=== PATIENT | male | born 1960 | race Caucasian/White ===

== ENCOUNTER → 2018-01-19 12:51 | Outpatient (CLI) | payer BC, SELFPAY ==
[2018-01-19 16:30] LABS: Alanine Aminotransferase 26 U/L (12-78); Albumin Level 3.8 gm/dL (3.4-5.0); Alkaline Phosphatase 78 U/L (46-116); Aspartate Amino Transferase 17 U/L (15-37); Bilirubin,Direct 0.1 mg/dL (0.0-0.2); Bilirubin,Indirect 0.3 mg/dL (0.0-0.9); Bilirubin,Total 0.4 mg/dL (0.2-1.0); Chol/HDL Ratio 5.5 (1-3.5); Cholesterol 143 mg/dL (140-200); HDL Cholesterol 26 mg/dL (27-67); LDL Cholesterol 71 mg/dL (0-130); Total Protein,Serum 7.3 gm/dL (6.4-8.2); Triglycerides 228 mg/dL (30-200); VLDL Cholesterol 46 mg/dL (0-40)
== END ==
PROVIDERS: Visit Provider Internal Medicine
DX: E78.5 Hyperlipidemia, unspecified (principal)
CPT/HCPCS: 36415; 80061; 80076

== ENCOUNTER → 2018-12-12 18:20 | Outpatient (CLI) | payer BC, SELFPAY ==
[2018-12-12 20:23] LABS: Amphetamine/Metha Screen,Urine Negative ng/mL (<1000); Barbiturates Screen,Urine Negative ng/mL (<200); Benzodiazepines Screen,Urine Negative ng/mL (<200); Cannabinoid Screen,Urine Negative ng/mL (<50); Cocaine Screen,Urine Negative ng/mL (<300); Methadone Screen,Urine Negative ng/mL (<300); Opiate Screen,Urine Positive ng/mL (<300); Phencyclidine Screen,Urine Negative ng/mL (<25)
== END ==
PROVIDERS: Visit Provider Emergency Medicine
DX: Z79.891 Long term (current) use of opiate analgesic (principal)
CPT/HCPCS: 80305

== ENCOUNTER → 2018-12-31 13:59 | Outpatient (CLI) | payer BC, SELFPAY ==
[2018-12-31 16:58] LABS: Amphetamine/Metha Screen,Urine Negative ng/mL (<1000); Barbiturates Screen,Urine Negative ng/mL (<200); Benzodiazepines Screen,Urine Negative ng/mL (<200); Cannabinoid Screen,Urine Negative ng/mL (<50); Cocaine Screen,Urine Negative ng/mL (<300); Methadone Screen,Urine Negative ng/mL (<300); Opiate Screen,Urine Positive ng/mL (<300); Phencyclidine Screen,Urine Negative ng/mL (<25)
== END ==
PROVIDERS: Visit Provider Emergency Medicine
DX: Z79.899 Other long term (current) drug therapy (principal)
CPT/HCPCS: 80305

== ENCOUNTER → 2020-02-27 10:40 | Outpatient (CLI) | payer BC, SELFPAY ==
--- NOTE | 2020-02-27 10:41 | CA_ITS ---
APPROVED REPORT EXAM: Comprehensive 2D, Doppler, and color-flow Echocardiogram Mattress Renovator: Ryann Boss RVT Ht: 5 ft 11 in Wt: 231lbs BSA: 2.24 BP: 154/95 mmHg Indications: cad,htn,hld,smoker,dot clearance,stent 2D Dimensions LVOT 1.75 cm (M/F) 1.5-2.5 M-Mode Dimensions RVDd 3.60 cm (0.9-2.6) LA Diam 4.27 cm (1.9-4.0) LVDd 5.46 cm (3.5-5.7) Ao Diam 2.93 cm (2.0-3.7) LVDs 3.98 cm (3.5-5.7) IVSd 0.68 cm (0.6-1.1) PWd 1.14 cm (0.6-1.1) EF (Teich) 52.30% FS 27.10% EDV (Teich) 145.00 mL ESV (Teich) 69.20 mL LV Diastology E Decel Time 197.00 (160-240 msec) E/A Ratio 0.7 MED E' 5.70 (< 7 cm/sec) E'/MED E' Ratio 11.12 (>14) LAT E' 8.90 (<10 cm/sec) E/LAT E' Ratio 7.12 (>14) Mitral Valve MV E Max Ricky. 63.00 (40-130 cm/s) MV A Velocity 89.00 (40-130 cm/s) E/A Ratio 0.71 MV Decel. Time 197.00 (160-240 ms) MV PHT 58.00 ms Pulmonary Valve PV Peak Velocity 85.00 (50-150 cm/s) Left Ventricle Left atrium is mildly enlarged, left ventricle is normal size, mild concentric left ventricular hypertrophy, visually estimated ejection fraction 55% with no regional wall motion abnormality, grade 1 diastolic dysfunction seen without tissue Doppler evidence of raise left atrial pressure. Right Ventricle Right atrium and right ventricle are mildly enlarged with normal contractility. Aortic Valve Aortic valve is minimally thickened and fibrosed, leaflet continue to display good mobility, there is no aortic stenosis or aortic insufficiency. Mitral Valve Mitral valve is grossly normal, there is mild mitral regurgitation. Tricuspid Valve Tricuspid valve is grossly normal, there is mild tricuspid regurgitation, tricuspid regurgitation jet velocity is inadequate for calculation of the right ventricular systolic pressure. Pulmonic Valve Pulmonic valve is poorly visualized. Great Vessels Aortic root is normal size. Pericardium No significant pericardial effusion noted. Conclusion 1. Mild biatrial enlargement, normal left ventricular size, mild concentric left ventricular hypertrophy, visually estimated ejection fraction 55% with no regional wall motion abnormality, grade 1 diastolic dysfunction seen without tissue Doppler evidence of raise left atrial pressure. 2. Mildly enlarged right ventricle with normal contractility. 3. Thickened and calcified aortic valve without aortic stenosis or aortic insufficiency. 4. Mild mitral and tricuspid regurgitation. 5. No significant pericardial effusion noted. Electronically signed by : Jona Uribe, 02/27/2020 14:44:25
--- NOTE | 2020-02-27 10:41 | NM_ITS ---
APPROVED REPORT Exam: Nuclear Stress Test Indication: CAD,,Hypertensive..hyperlipidemia Patient Location: Outpatient Stress Tech: Mraitza Thomasnkson NC Tech:ELIZABETH Arguello RT(R)(N) Ht: 5 ft 11 in Wt: 228 lbs HR: 73 bpm BP: 135/75 mmHg BSA: 2.23 m2 BMI: 31.7 History: CAD,,Hypertensive..hyperlipidemia Procedure: Patient received a 0.4 mg of intravenous Lexiscan, resting heart rate 73 bpm, resting blood pressure 135/75 mmHg, with Lexiscan maximum heart rate achived was 98 bpm which is Less than 85 % of the maximum predicted heart rate and blood pressure was 151/75 mmHg. With Lexiscan, patient denied any complaint of chest pain. Electrocardiogram Resting electrocardiogram showed sinus rhythm right bundle branch block, with Lexiscan there is less than 1.[address] segment depression noted from the baseline EKG. The EKG portion of the Lexiscan is nondiagnostic. Cardiac Stress and Resting SPECT Images: Cardiac Stress and Resting SPECT images were obtained using technetium 99m Myoview 32.0 mCi stress and 10.74 mCi at rest. Gated SPECT for analysis of segmental wall motion and calculation of the ejection fraction also done. Cardiac stress and resting SPECT images show a mild fixed defect in the inferior wall with mild reduced contractility is likely secondary to nontransmural myocardial scarring without any significant darlin-infarct ischemia, computer derived ejection fraction is 52% with no regional wall motion abnormality, right ventricle is normal size and contractility. Conclusion: 1. The EKG portion of the Lexiscan is nondiagnostic. 2. Scintigraphic evidence of nontransmural myocardial scarring involving the inferior wall without significant darlin-infarct ischemia, computer derived ejection fraction 52% with no regional wall motion abnormality, right ventricle is normal size and contractility. 3. Abnormal Lexiscan Myoview study. Electronically signed by : Jona Uribe, 02/27/2020 14:54:10
--- NOTE | 2020-02-27 10:41 | CA_ITS ---
APPROVED REPORT Exam: Pharmacologic Technologist: Lilly Mendez, Ht: 5 ft 11 in Wt: 231 lbs BSA: 2.24 m2 HR: 73 bpm BP: 135/75 mmHg Rhythm: NSR, RBB, CANNOT R/O OLD INFERO-LATERAL CA Medical History Medical History: Hyperlipidemia, Hyperlipidemia Medications: Hydrocodone,,,,, CloPIdogrel,,,,, Acetaminophen,,,,, Nitroglycerin,,,,, AtorvaASTATIN,,,,, PantoprazLE,,,,, Lisinopri/HCTZ,,,,, Allergies: No known drug allergies Cardiac Risk Factors: Hyperlipidemia Stress Test Details Test: LEXISCAN HR Resting HR: 75 bpm Max Heart Rate (APMHR): 159 bpm Max HR Achieved: 119 bpm Target HR (85% APMHR): 135 bpm % of APMHR: 74 Recovery HR: 91 bpm BP Resting BP: 135/75 mmHg Max BP: 155/75 mmHg Recovery BP: 126.0/80.0 mmHg ECG Clinical Exercise duration: 04:19 min Highest Stage Achieved: Exercise capacity: 1.0 METs Stress ECG Conclusion DURING STRESS PATIENT BECAME SOA, HAD MILD NAUSEA AND MALAISE. NO CP. NO ARRHYTHMIAS. NO SIGNIFICANT ST-T CHANGES. UNREMARKABLE LEXISCAN STRESS. MYOVIEW IMAGES REPORTED SEPERATELY. Electronically signed by : Jona Uribe, 02/27/2020 16:46:07
== END ==
LOC: RT 10:41
PROVIDERS: PCP Emergency Medicine; Visit Provider Nurse Practitioner Family
DX: Z02.4 Encounter for examination for driving license (principal); I25.10 Atherosclerotic heart disease of native coronary artery without angina pectoris; I11.9 Hypertensive heart disease without heart failure; E78.5 Hyperlipidemia, unspecified; F17.200 Nicotine dependence, unspecified, uncomplicated; Z95.5 Presence of coronary angioplasty implant and graft
CPT/HCPCS: 78452; 93017; 93306; A9502; J2785

== ENCOUNTER → 2021-12-30 16:03 | Outpatient (CLI) | payer BC, SELFPAY | PROVIDERS: PCP Emergency Medicine; Visit Provider Nurse Practitioner Family | DX: Z02.4 Encounter for examination for driving license (principal) ==

== ENCOUNTER 2024-07-30 07:54 | Outpatient (CLI) | payer BC, MEDICARE, SELFPAY ==
--- NOTE | 2024-07-30 | US_ITS ---
FINAL REPORT CLINICAL HISTORY: Claudication, cold feet, smoker, HTN, HLD, CAD, RI, Cardiac stents 5, Non-compliant with meds FINDINGS: Ankle-brachial indices was obtained. The right DIMITRI is 0.58. The left DIMITRI is 0.44. IMPRESSION: Moderate to advanced arterial occlusive disease. Consider catheter directed angiography. Reviewed, Interpreted and Dictated by Tr Lehman MD Transcribed by Suzanne Islas Authenticated and [facility]
== END 2024-07-30 23:59 | disposition home or self-care (01) ==
LOC: RT 07:55
PROVIDERS: PCP Family Medicine; Visit Provider Family Medicine
DX: I73.9 Peripheral vascular disease, unspecified (principal)
CPT/HCPCS: 93923

== ENCOUNTER 2024-11-21 08:07 | Outpatient (CLI) | payer BC, MEDICARE, SELFPAY ==
--- OUTSIDE RECORDS SUMMARY | 2024-07-25 06:00 | XMS_ITS ---
[facility] [address] [facility] [address] [phone] Care Team Providers Care Fire Watchman Name Role Phone Tex Hurt Primary Care Provider [phone] Allergies No Known Allergies Results Component Value Reference Range Notes CBC Venipuncture (in house) Reviewed date:07/26/2024 08:23:46 AM Interpretation:Normal Performing Lab: Notes/Report: Normal wbc 9.2 3.5 - 10 lymph 22.5% 15 - 50 mid 5.2% 2 - 15 gran 72.3% 35 - 80 rbc 5.51 3.5 - 5.5 hgb 15.4 11.5 - 16.5 hct 46.8 35 - 55 mcv 84.9 75 - 100 mch 28.1 25 - 35 mchc 33.0 31 - 38 platlet 287 100 - 400 P-Comprehensive Metabolic Pa heather (CMP) Reviewed date:07/26/2024 08:23:46 AM Interpretation:gluc 135 Performing Lab: Notes/Report: Test performed by [facility] , [address], [place] [address] Elliot De Santiago MD, Warehouse Puller CLIA: [id number] Sodium 135 135-145 mmol/L Potassium 5.3 3.5-5.3 mmol/L Chloride 98 97-108 mmol/L CO2 25 22-32 mmol/L Glucose 135 65-99 mg/dL BUN 11 8-23 mg/dL Creatinine 1.03 0.70-1.30 mg/dL Calcium 9.8 8.6-10.4 mg/dL eGFR by Creatinine 80 >59 mL/min/1.73m2 Protein 7.4 6.0-8.3 g/dL Albumin 4.5 3.5-5.3 g/dL Alkaline Phosphatase 99 40-129 IU/L ALT (SGPT) 35 <5-55 IU/L AST (SGOT) 29 <5-46 IU/L Bilirubin, Total 0.4 <0.2-1.2 mg/dL A/G Ratio 1.6 1.1-2.5 P-Lipid Panel Reviewed date:07/26/2024 08:23:46 AM Interpretation:hdl 35 Performing Lab: Notes/Report: Test performed by [facility] [address] , [address], [place] [address] Elliot De Santiago MD, Warehouse Puller CLIA: [id number] Cholesterol 160 <200 mg/dL Triglycerides 135 <150 mg/dL HDL Cholesterol 35 >39 mg/dL Cholesterol / HDL Ratio 4.57 0.00-4.99 Ratio Non-HDL Cholesterol 125 <130 mg/dL LDL Cholesterol (Calculation) 98 <130 mg/dL LDL Cholesterol Levels* Less than 100 mg/dL Optimal 100 to 129 mg/dL Near Optimal/ Above Optimal 130 to 159 mg/dL Borderline High 160 to 189 mg/dL High 190 mg/dL and above Very High * Categories as recommended by the 2004 ATPIII guidelines LDL/HDL Ratio 2.8 <3.3 Ratio LDL Cholesterol Patient History Test Date: 07/25/2024 LDL Results: 98 Units: mg/dL % Change: - P-PSA Reviewed date:07/26/2024 08:23:46 AM Interpretation:Normal Performing Lab: Notes/Report: Test performed by [facility] [address] , [facility], [place] [address] Elliot De Santiago MD, Warehouse Puller CLIA: [id number] PSA 0.52 <4.00 ng/mL Please note this is an ultrasensitive PSA assay with a lower limit of detection of 0.014 ng/mL. This test is performed by the Lesley ECLIA methodology. Values obtained with different assay methods or kits cannot be directly compared. P-TSH reflex to FT4 Reviewed date:07/26/2024 08:23:46 AM Interpretation:Normal Performing Lab: Notes/Report: Test performed by [facility] [address] , [facility] [place] [address] Elliot De Santiago MD, Warehouse Puller CLIA: [id number] TSH reflex to FT4 0.89 0.43-5.25 mU/L P-Microalbumin/Creatinine, R andom Urine Sample Reviewed date:07/26/2024 08:23:46 AM Interpretation:Normal Performing Lab: Notes/Report: Test performed by [facility] [address] , [facility], [place] [address] Elliot De Santiago MD, Warehouse Puller CLIA: [id number] Albumin/Creatinine Ratio, Urine <7.10 0-30 ug/mg Microalbumin, Urine, Random <0.3 Creatinine, Urine 42.2 Ankle-brachial index Reviewed date:08/01/2024 12:27:22 PM Interpretation:Abnormal Performing Lab: Notes/Report: Abnormal REASON FOR VISIT To get established-physical, leg pain Medications Medication SIG (Take, Route, Frequency, Duration) Notes Start Date End Date Status Terbinafine HCl 250 MG 1 tablet Orally O nce a day; Duration: 90 days 07/25/2024 Active Pantoprazole Sodium 40 MG 1 tablet 1/2 t o 1 hour before morning meal Orally Once a day Active Atorvastatin Calcium 80 MG 1 tablet Oral ly Once a day Active Lisinopril 20 MG 1 tablet Orally Once a day Active Clopidogrel Bisulfate 75 MG 1 tablet Ora lly Once a day Active Social History Tobacco Use: Social History Observation Description Date Details (start date - stop date) Current Smoker NA - NA CURRENT TOBACCO USE: Question Answer Notes Are you a: current every day smoker 1 1/2 P PD Problems Problem Type SNOMED Code ICD Code Onset Dates Problem Status W/U Status Risk Notes Problem Coronary arteriosclerosis (disorder) (07556827) CAD in elem artery (I25.10) Active confirmed Problem Essential hypertension (89935453) Essential hypertension (I10) Active confirmed Problem Hyperlipidaemia (76263705) Hyperlipidemia, unspecified hyperlipidemia type (E78.5) Active confirmed Problem Intermittent claudication (15219880) Intermittent claudication (I73.9) Active confirmed Problem Sciatica (93948033) Left sided sciatica (M54.32) Active confirmed Problem Cigarette smoker (96514874) Cigarette smoker (F17.210) Active confirmed Problem Obesity (769768112) Non morbid obesity (E66.9) Active confirmed Problem BMI 30+ - obesity (260739620) BMI 32.0-32.9,adult (Z68.32) Active confirmed Vital Signs Weight 230 lbs 07/25/2024 Blood pressure systolic 140 mm Hg 07/26/19 25 Blood pressure diastolic 78 mm Hg 025 Heart Rate 83 /min 07/25/2024 Height 71 in 07/25/2024 BMI 32.07 kg/m2 07/25/2024 Encounters Encounter Location Date [facility] [address] [phone] 07/25/2024 Tex Hurt CAD in elem artery I25.10 ; Essential hypertension I10 ; Hyperlipidemia, unspecified hyperlipidemia type E78.5 ; Intermittent claudication I73.9 ; Pain in right arm M79.601 ; Left sided sciatica M54.32 ; Cigarette smoker F17.210 ; Onychomycosis B35.1 ; Onycholysis L60.1 ; Non morbid obesity E66.9 ; Prostate cancer screening Z12.5 and BMI 32.0-32.9,adult Z68.32 Assessments Encounter Date Diagnosis (ICD Code) Assessment Notes Treatment Notes Treatment Clinical Notes Section Notes 07/25/2024 CAD in elem artery (ICD-10 - I25.10) 07/25/2024 Essential hypertension (ICD-10 - I10) 07/25/2024 Hyperlipidemia, unspecified hyperlipidemia type (ICD-10 - E78.5) 07/25/2024 Intermittent claudication (ICD-10 - I73.9) 07/25/2024 Pain in right arm (ICD-10 - M79.601) 07/25/2024 Left sided sciatica (ICD-10 - M54.32) 07/25/2024 Cigarette smoker (ICD-10 - F17.210) Smoking cessation and necessary changes of behavior discussed with patient 07/25/2024 Onychomycosis (ICD-10 - B35.1) 07/25/2024 Onycholysis (ICD-10 - L60.1) 07/25/2024 Non morbid obesity (ICD-10 - E66.9) 07/25/2024 Prostate cancer screening (ICD-10 - Z12.5) 07/25/2024 BMI 32.0-32.9,adult (ICD-10 - Z68.32) Plan Of Treatment Medication Medication Name Sig Start Date Stop Date Notes Terbinafine HCl 250 MG 1 tablet Orally O nce a day; Duration: 90 days 07/25/2024 Pantoprazole Sodium 40 MG 1 tablet 1/2 t o 1 hour before morning meal Orally Once a day Atorvastatin Calcium 80 MG 1 tablet Orally Once a day Lisinopril 20 MG 1 tablet Orally Once a day Clopidogrel Bisulfate 75 MG 1 tablet Orally Once a day Treatment Notes Assessment Notes Cigarette smoker Smoking cessation an d necessary changes of behavior discussed with patient Next Appt Details Follow Up: 3 Months, Reason: Progress Notes * Hector GARCIASDOB: (64 yo M)Acc No.[id number]:07/25/2024 Progress Notes Patient: Hector VEGA Wali Provider: Betty Hurt M.D. :1960 A ge:63 Y S ex:Male Date:07/25/2024 Address:[address] [place] [address], [facility] [id number] Subjective: * Chief Complaints: * 1 . To get established-physical, leg pain. * HPI: H PI: 63 year old male presents with c/o Patient is here today for?Pt here to establish care, pt was previously seen by Dr. Soto Sanchez. D ermatology: c/o toe nail fungus P t complains of toe nail fungus on both feet and hands. Pt states toes are starting to get numb at times and pt thinks it may be from the fungi. K nee/Cardoza: c/o calf pain P t complains of bilateral calf tightening . Pt states it feels like he has a fausto horse in both calves . L ower back: c/o radiation of pain P t complains of lt lower back pack pain that radiates down the back of his lt leg. Pt states pain is debiliating at times and makes it difficult to complete daily tasks. * ROS: D ERMATOLOGY: no R tomas. n o H jaun. G ASTROENTEROLOGY: no N ausea. n o V omiting. U ROLOGY: no D ifficulty urinating. n o B lood in urine. * Medical History: H ypertlipidemia, Esophageal reflux, Hypertension, Coronary Artery Disease, 50 pack year smoking history as of 2024. * Surgical History: P ercutaneous coronary intervention, 5 stents in total, at [facility] . * Hospitalization/Major Diagno stic Procedure: D enies Past Hospitalization. * Family History: F ather: diagnosed with Stroke. M other: diagnosed with Cancer, Heart Disease. M aternal Grand Mother: diagnosed with Diabetes. 1 sister(s) . 1 daughter(s) . . * Social History: C URRENT TOBACCO USE: Yes A re you a: c urrent every day smoker 1 1/2 PPD. C affeine: yes, frequency: 3 Times Daily. Alcohol: yes. * Medications: T aking Clopidogrel Bisulfate 75 MG Tablet 1 tablet Orally Once a day , Taking Pantoprazole Sodium 40 MG Tablet Delayed Release 1 tablet 1/2 to 1 hour before morning meal Orally Once a day , Taking Atorvastatin Calcium 80 MG Tablet 1 tablet Orally Once a day , Taking Lisinopril 20 MG Tablet 1 tablet Orally Once a day , Medication List reviewed and reconciled with the patient * Allergies: N .K.D.A. Objective: * Vitals: W t: 230, Temp: 97.9, BP: 140/78, HR: 83, Nurse: ceci, Ht: 71, BMI:32.07. * Examination: G eneral Examination: General Appearance: N AD. H EENT: u nremarkable.?Oral cavity: n o lesions, mucosa moist and WNL, no erythema. N calista: s upple, no lymphadenopathy. H eart: R SR. L ungs: c lear to auscultation. N eurologic Exam: Intact, gait normal. S kin: m ultiple toenails are thickened and discolored yellow. P eripheral pulses: d iminished bilaterally. E xtremities: n o leg edema. Assessment: * Assessment: 1. C AD in elem artery - I25.10 (Primary) 2 . E ssential hypertension - I10 3 . H yperlipidemia, unspecified hyperlipidemia type - E78.5 4 . I ntermittent claudication - I73.9 5 . P ain in right arm - M79.601 6 . L eft sided sciatica - M54.32 7 . C igarette smoker - F17.210 8 . O nychomycosis - B35.1 9 . O nycholysis - L60.1 ? 1 0. N on morbid obesity - E66.9 1 1. P rostate cancer screening - Z12.5 1 2. B OK 32.0-32.9,adult - Z68.32 Plan: * Treatment: 2. E ssential hypertension Continue Lisinopril Tablet, 20 MG, 1 tablet, Orally, Once a day. L AB: P-Comprehensive Metabolic Panel (CMP) (Collection Date & Time - 07/25/2024 09:51 AM) g hananh 135 Value Reference Range A /G Ratio 1.6 1.1-2.5 - * A lbumin 4.5 3.5-5.3 - g/dL * A lkaline Phosphatase 99 40-129 - IU/L * A LT (SGPT) 35 <5-55 - IU/L * A ST (SGOT) 29 <5-46 - IU/L * B ilirubin, Total 0.4 <0.2-1.2 - mg/dL * B UN 11 8-23 - mg/dL * C alcium 9.8 8.6-10.4 - mg/dL * C hloride 98 97-108 - mmol/L * C O2 25 22-32 - mmol/L * C reatinine 1.03 0.70-1.30 - mg/dL * G lucose 135 H 65-99 - mg/dL * P otassium 5.3 3.5-5.3 - mmol/L * S odium 135 135-145 - mmol/L * P rotein 7.4 6.0-8.3 - g/dL * e GFR by Creatinine 80 >59 - mL/min/1.73m2 * Zhanna Solorio 07/26/2024 08:23 :33 AM > See phone encounter ?LAB: P-Microalbumin/Creatinine, Random Urine Sample (Collection Date & Time - 07/25/2024 09:51 AM)?Normal* Value Reference Range A lbumin/Creatinine Ratio, Urine <7.10 0-30 - ug /mg * C reatinine, Urine 42.2 - mg/dL * M icroalbumin, Urine, Random <0.3 - mg/dL * Zhanna Solorio 07/26/2024 08:23 :33 AM > See phone encounter 3.?Hyperlipidemia, unspecified hyperlipidemia type? Continue Atorvastatin Calcium Tablet, 80 MG, 1 tablet, Orally, Once a day.?LAB: P-Comprehensive Metabolic Panel (CMP) (Collection Date & Time - 07/25/2024 09:51 AM)?gluc 135* Value Reference Range A /G Ratio 1.6 1.1-2.5 - * A lbumin 4.5 3.5-5.3 - g/dL * A lkaline Phosphatase 99 40-129 - IU/L * A LT (SGPT) 35 <5-55 - IU/L * A ST (SGOT) 29 <5-46 - IU/L * B ilirubin, Total 0.4 <0.2-1.2 - mg/dL * B UN 11 8-23 - mg/dL * C alcium 9.8 8.6-10.4 - mg/dL * C hloride 98 97-108 - mmol/L * C O2 25 22-32 - mmol/L * C reatinine 1.03 0.70-1.30 - mg/dL * G lucose 135 H 65-99 - mg/dL * P otassium 5.3 3.5-5.3 - mmol/L * S odium 135 135-145 - mmol/L * P rotein 7.4 6.0-8.3 - g/dL * e GFR by Creatinine 80 >59 - mL/min/1.73m2 * Zhanna Solorio 07/26/2024 08:23 :33 AM > See phone encounter ?LAB: P-Lipid Panel (Collection Date & Time - 07/25/2024 09:51 AM)?hdl 35* Value Reference Range C holesterol / HDL Ratio 4.57 0.00-4.99 - Ratio * C holesterol 160 <200 - mg/dL * H DL Cholesterol 35 L >39 - mg/dL * L DL Cholesterol (Calculation) 98 <130 - mg/d L * L DL/HDL Ratio 2.8 <3.3 - Ratio * N on-HDL Cholesterol 125 <130 - mg/dL * T riglycerides 135 <150 - mg/dL * Zhanna Solorio 07/26/2024 08:23 :33 AM > See phone encounter ?LAB: P-TSH reflex to FT4 (Collection Date & Time - 07/25/2024 09:51 AM)? Normal* Value Reference Range T SH reflex to FT4 0.89 0.43-5.25 - mU/L * Zhanna Solorio 07/26/2024 08:23 :33 AM > See phone encounter 4.?Intermittent claudication?LAB: CBC Venipuncture (in house) (Collection Date & Time - 07/25/2024)? Normal* Value Reference Range w bc 9.2 3.5 - 10 * l ymph 22.5% 15 - 50 * m id 5.2% 2 - 15 * g ran 72.3% 35 - 80 * r bc 5.51 3.5 - 5.5 * h gb 15.4 11.5 - 16.5 * h ct 46.8 35 - 55 * m cv 84.9 75 - 100 * m ch 28.1 25 - 35 * m chc 33.0 31 - 38 * p latlet 287 100 - 400 * Deepika Dailey 07/25/2024 11:32:3 6 AM > Zhanna Solorio 07/26/2024 08:23:33 AM > See phone encounter ?Imaging: Ankle-brachial index (Performed Date - 07/30/2024)?Abnormal* Prefers AM appt.Rob Moody 07/25/2024 02:05:20 PM > no auth required as MCR is primary; CPT code 71617; faxed to [facility] Scheduling; 07/30/2024 at 08:00amGoortiz Sultana 07/30/2024 08:27:38 AM > Annette has called from [facility] lab. Pts readings are 0.44 on left leg, 0.58 on right leg, it should be 1.0. They are holding the pt as these are critical readings and need direction from Dr. Hurt. She sts that she is having a hard time finding a pulse in the left leg.Zhanna Solorio 07/31/2024 05:32:33 PM >see 07/30/2024 TE 5.?Cigarette smoker? Notes: Smoking cessation and necessary changes of behavior discussed with patient??6.?Onychomycosis? Start Terbinafine HCl Tablet, 250 MG, 1 tablet, Orally, Once a day, 90 days, 90 Tablet, Refills 0. ?7.?Prostate cancer screening?LAB: P-PSA (Collection Date & Time - 07/25/2024 09:51 AM)?Normal* Value Reference Range P SA 0.52 <4.00 - ng/mL * Zhanna Solorio 07/26/2024 08:23 :33 AM > See phone encounter 8.?Others? Continue Pantoprazole Sodium Tablet Delayed Release, 40 MG, 1 tablet 1/2 to 1 hour before morning meal, Orally, Once a day.?? * Procedure Codes: G 2211 Complex e/[place], [address] CBC WITH AUTO DIFF, 3077F SYST BP = 140 MM HG6 IT, 3078F DIAST BP < 80 MM HG * Follow Up: 3 Months * Images: Billing Information: * Visit Code: 58835 Office Visit, New Pt., Level 4. * Procedure Codes: G2211 Complex e/[place] [address] CBC WITH AUTO DIFF. 3077F SYST BP = 140 MM HG6 IT. 3078F DIAST BP < 80 MM HG. * Electronic signature of Yadira Hurt MD on 11/21/2024 at 08:13 AM EDT Sign off status: Pending * Provider: Betty Hurt M.D. Date: 0 07/25/2024 Generated for Ad de la garza/Omar/Lalo on: 0 11/21/2024 08:13 AM EDT History and Physical Notes * HPI (History of Present Illness) Category Sub-Category Detail Notes Category Not es Dermatology toe nail fungus Pt complains of toe nail fungus on both feet and hands. Pt states toes are starting to get numb at times and pt thinks it may be from the fungi Lower back radiation of pain Pt complains o f lt lower back pack pain that radiates down the back of his lt leg. Pt states pain is debiliating at times and makes it difficult to complete daily tasks Knee/Cardoza calf pain Pt complains of bilateral calf tightening . Pt states it feels like he has a fausto horse in both calves HPI Patient is here today for Pt her e to establish care, pt was previously seen by Dr. Soto Sanchez Examination Category Sub-Category Detail Notes Category Not es General Examination HEENT: unremarkable Heart: RSR Lungs: clear to auscultatio n Extremities: no leg edema General Appearance: NAD Skin: multiple toenails ar e thickened and discolored yellow Neurologic Exam: Intact, gait normal Neck: supple, no lymphaden opathy Oral cavity: no lesions, mucosa m oist and WNL, no erythema Peripheral pulses: diminished bilateral ly
--- OUTSIDE RECORDS SUMMARY | 2024-10-24 05:30 | XMS_ITS ---
Author Organization [facility] Address [facility] [address] [place] [id number] Care Team Providers Care Compounder Flavorings Name Role Phone Tex Hurt Primary Care Provider REASON FOR VISIT 3 month f/u Encounters Encounter Location Date Provider Diagnosis [facility] [address] [place] [phone] 10/24/2024 Tex Hurt Plan Of Treatment No Information Progress Notes * Hector GARCIAS WaliDOB: (64 yo M)Acc No.[id number]:10/24/2024 Progress Notes Patient: Hector VEGA Provider: Betty Hurt M.D. :1960 A ge:64 Y S ex:Male Date:10/24/2024 Address:[address] [place], [place] [phone] Subjective: * Chief Complaints: * 1 . 3 month f/u. * Medical History: Objective: * Vitals: Assessment: Plan: * Treatment: * Images: Billing Information: * Visit Code: * Procedure Codes: * Electronic signature of Yadira Hurt MD on 11/21/2024 at 08:13 AM EDT Sign off status: Pending * Provider: Betty Hurt M.D. Date: 10/24/2024 Generated for Ad de la garza/Omar/eTmona on: 11/21/2024 08:13 AM EDT
--- OUTSIDE RECORDS SUMMARY | 2024-11-04 05:00 | XMS_ITS ---
Author Organization [facility] Address [address] [facility] [address] [place] [id number] Care Team Providers Care Electric Range Servicer Name Role Phone Tex Hurt Primary Care Provider [phone] Allergies No Known Allergies REASON FOR VISIT life line screening f/u Medications Medication SIG (Take, Route, Frequency, Duration) Notes Start Date End Date Status Terbinafine HCl 250 MG 1 tablet Orally O nce a day; Duration: 90 days 07/25/2024 Active Clopidogrel Bisulfate 75 MG 1 tablet Ora lly Once a day Active Lisinopril 20 MG 1 tablet Orally Once a day Active Atorvastatin Calcium 80 MG 1 tablet Oral ly Once a day Active Pantoprazole Sodium 40 MG 1 tablet 1/2 t o 1 hour before morning meal Orally Once a day Active Social History Tobacco Use: Social History Observation Description Date Details (start date - stop date) Current Smoker NA - NA CURRENT TOBACCO USE: Question Answer Notes Are you a: current every day smoker 1 03/21 P PD Vital Signs Weight 229 lbs 11/04/2024 Blood pressure systolic 158 mm Hg 11/05/19 25 Blood pressure diastolic 82 mm Hg 025 Heart Rate 90 /min 11/04/2024 Height 71 in 11/04/2024 BMI 31.94 kg/m2 11/04/2024 Encounters Encounter Location Date Provider Diagnosis [facility] [address] [place] [address] [place] [id number] 11/04/2024 Tex Hurt Intermittent claudication I73.9 and Abnormal ankle brachial index (DIMITRI) R68.89 Assessments Encounter Date Diagnosis (ICD Code) Assessment Notes Treatment Notes Treatment Clinical Notes Section Notes 11/04/2024 Intermittent claudication (ICD-10 - I73.9) 11/04/2024 Abnormal ankle brachial index (DIMITRI) (ICD-10 - R68.89) Plan Of Treatment Next Appt Details Follow Up: via phone to repo rt test results, Reason: Progress Notes * Hector GARCIASDOB: (64 yo M)Acc No.[id number]:11/04/2024 Progress Notes Patient: Hector VEGA Provider: Betty Hurt M.D. :1960 A ge:64 Y S ex:Male Date:11/04/2024 Address:[address] [place] [address], [id number] Subjective: * Chief Complaints: * 1 . Life line screening f/u. * HPI: H PI: 64 year old male presents with c/o Here for follow up on: 0 08/13/2024 cardiology consult, see pt docs. Pt states he also had a Lifeline screening and would like to discuss today, pt has results on tablet . * ROS: D ERMATOLOGY: no R tomas. n o H jaun. G ASTROENTEROLOGY: no N ausea. n o V omiting. U ROLOGY: no D ifficulty urinating. n o B lood in urine. * Medical History: H ypertlipidemia, Esophageal reflux, Hypertension, Coronary Artery Disease, 50 pack year smoking history as of 2024. * Surgical History: P ercutaneous coronary intervention, 5 stents in total, at [facility] . * Hospitalization/Major Diagno stic Procedure: D enies Past Hospitalization. * Family History: F ather: diagnosed with Stroke. M other: diagnosed with Cancer, Heart Disease. M aternal Grand Mother: diagnosed with Diabetes. 1 sister(s) . 1 daughter(s) . . * Social History: C URRENT TOBACCO USE: Yes A re you a: c urrent every day smoker 1 /2 PPD. C affeine: yes, frequency: 3 Times Daily. Alcohol: yes. * Medications: T aking Terbinafine HCl 250 MG Tablet 1 tablet Orally Once a day , Taking Clopidogrel Bisulfate 75 MG Tablet 1 tablet Orally Once a day , Taking Lisinopril 20 MG Tablet 1 tablet Orally Once a day , Taking Atorvastatin Calcium 80 MG Tablet 1 tablet Orally Once a day , Taking Pantoprazole Sodium 40 MG Tablet Delayed Release 1 tablet 1/2 to 1 hour before morning meal Orally Once a day , Medication List reviewed and reconciled with the patient * Allergies: N .K.D.A. Objective: * Vitals: W t: 229, Temp: 97.7, BP: 158/82, HR: 90, Nurse: ceci, Ht: 71, BMI:31.94. * Examination: G eneral Examination: General Appearance: N AD. Assessment: * Assessment: 1. I ntermittent claudication - I73.9 (Primary) 2 . A bnormal ankle brachial index (DIMITRI) - R68.89 Plan: * Treatment: * Follow Up: v ia phone to report test results * Images: Billing Information: * Visit Code: 36895 Office Visit, Est Pt., Level 3. * Procedure Codes: * Electronic signature of Yadira Hurt MD on 11/21/2024 at 08:14 AM EDT Sign off status: Pending * Provider: Betty Hurt M.D. Date: 0 11/04/2024 Generated for Ad de la garza/Omar/Jose Fsmitting on: 0 11/21/2024 08:14 AM EDT History and Physical Notes * HPI (History of Present Illness) Category Sub-Category Detail Notes Category Not es HPI Here for follow up on: 5 cardiology consult, see pt docs. Pt states he also had a Lifeline screening and would like to discuss today, pt has results on tablet Examination Category Sub-Category Detail Notes Category Not es General Examination General Appearance: NAD
--- OUTSIDE RECORDS SUMMARY | 2024-11-13 04:21 | XMS_ITS ---
Author Organization [facility] Address 1210 [facility] [address] [place] [id number] Care Team Providers Care Rehab Rn Name Role Phone Tex Hurt Primary Care Provider [phone] REASON FOR VISIT Request for lab work Encounters Encounter Location Date Provider Diagnosis [facility] [facility] [address] [place] [phone] 11/13/2024 Tex Licha Intermittent claudication I73.9 and Abnormal ankle brachial index (DIMITRI) R68.89 Assessments Encounter Date Diagnosis (ICD Code) Assessment Notes Treatment Notes Treatment Clinical Notes Section Notes 11/13/2024 Intermittent claudication (ICD-10 - I73.9) 11/13/2024 Abnormal ankle brachial index (DIMITRI) (ICD-10 - R68.89) Plan Of Treatment Pending Test Test Name Order Date H-BUN/CREAT 11/13/2024 Progress Notes * Hector GARCIASDOB: (64 yo M)Acc No.[id number]:11/13/2024 Patient: Hector VEGA :1960 A ge:64 Y S ex:Male Address:[address] [place], [place] [address] [address] Subjective: * Chief Complaints: * R equest for lab work * Medical History: * Surgical History: * Hospitalization/Major Diagno stic Procedure: * Medications: Objective: * Vitals: * Physical Examination: Assessment: * Assessment: 1. I ntermittent claudication - I73.9 (Primary) 2 . A bnormal ankle brachial index (DIMITRI) - R68.89 Plan: * Treatment: 2. A bnormal ankle brachial index (DIMITRI) L AB: H-BUN/CREAT * Procedure Codes: * true * Date: Generated for Ad de la garza/Omar/Lalo on: 0 11/21/2024 08:14 AM EDT
--- OUTSIDE RECORDS SUMMARY | 2024-11-21 08:14 | XMS_ITS | Patient Health Record ---
[facility] [address] [place] [address] [place] [id number] Care Team Providers Care Bill Peddler Name Role Phone Tex Hurt Primary Care Provider Allergies No Known Allergies Results Component Value [...] 135 Performing Lab: Notes/Report: Test performed by [facility], [facility] , [address], [place] [address] Elliot De Santiago MD, Psychiatric Mental Health Nurse CLIA: [id number] Sodium 135 135-145 mmol/L Potassium 5.3 3.5-5.3 [...] 35 Performing Lab: Notes/Report: Test performed by [facility], [address] , [place] [address] Elliot De Santiago MD, Psychiatric Mental Health Nurse CLIA: [id number] Cholesterol 160 <200 mg/dL Triglycerides 135 <150 [...] Interpretation:Normal Performing Lab: Notes/Report: Test performed by [facility] [address] , [address], [place] [address] Elliot De Santiago MD, Psychiatric Mental Health Nurse CLIA: [id number] PSA 0.52 <4.00 ng/mL Please note this is an ultrasensitive PSA assay with a lower limit of detection of 0.014 ng/mL. This test is performed by the Lesley ECLIA methodology. Values obtained with different assay methods or kits cannot be directly compared. P-TSH reflex to FT4 Reviewed date:07/26/2024 08:23:46 AM Interpretation:Normal Performing Lab: Notes/Report: Test performed by [facility] [address] [place] [address] , [place] [address] Elliot De Santiago MD, Psychiatric Mental Health Nurse CLIA: [id number] TSH reflex to FT4 0.89 0.43-5.25 mU/L P-Microalbumin/Creatinine, R andom Urine Sample Reviewed date:07/26/2024 08:23:46 AM Interpretation:Normal Performing Lab: Notes/Report: Test performed by [facility] [address] [place] [address] , [address], [place] [address] Elliot De Santiago MD, Psychiatric Mental Health Nurse CLIA: [id number] Albumin/Creatinine Ratio, Urine <7.10 0-30 ug/mg Microalbumin, Urine, Random <0.3 Creatinine, Urine 42.2 Ankle-brachial index Reviewed date:08/01/2024 12:27:22 PM Interpretation:Abnormal Performing Lab: Notes/Report: Abnormal Reason For Referral Reason patient needs to be seen JOSE Diagnosis 1 Intermittent claudic ation (I73.9) Diagnosis 2 Abnormal ankle brach ial index (DIMITRI) (R68.89) Referral Organization [facility] Referring Provider First Name Tex Referring Provider Last Name Licha Referring Provider Speciality Family Pra ctice Referred Provider Gumaro Newman Referred Provider Specialty Cardiovascul ar Disease General Notes Ana Maria Moody 2024 08:37:25 AM > faxed to [facility] Cardiology, Ana Maria Moody 07/31/2024 01:23:41 PM > 08/01/2024 at 01:30pm Referral Priority Routine Medications Medication SIG (Take, Route, Frequency, Duration) [...] Problem Status W/U Status Risk Notes Problem Essential hypertension (69143599) Essential hypertension (I10) Active confirmed Problem BMI 30+ - obesity (399537839) BMI 32.0-32.9,adult (Z68.32) Active confirmed Problem Hyperlipidaemia (40042444) Hyperlipidemia, unspecified hyperlipidemia type (E78.5) Active confirmed Problem Cigarette smoker (38780957) Cigarette smoker (F17.210) Active confirmed Problem Sciatica (09229668) Left sided sciatica (M54.32) Active confirmed Problem Intermittent claudication (78433144) Intermittent claudication (I73.9) Active confirmed Problem Obesity (745940504) Non morbid obesity (E66.9) Active confirmed Problem Coronary arteriosclerosis (disorder) (33323304) CAD in lovelock artery (I25.10) Active confirmed Vital Signs Heart Rate 90 /min 11/04/2024 Blood pressure diastolic 82 mm Hg 11/04/2024 Height 71 in 11/04/2024 Blood pressure systolic 158 mm Hg 11/04/2024 Weight 229 lbs 11/04/2024 BMI 31.94 kg/m2 11/04/2024 Encounters Encounter Location Date Provider Diagnosis [facility] [address] [facility] [address] [place], [place] [id number] 07/25/2024 Tex Hurt CAD in lovelock artery I25.10 ; Essential hypertension I10 ; Hyperlipidemia, unspecified hyperlipidemia type E78.5 ; Intermittent claudication I73.9 ; Pain in right arm M79.601 ; Left sided sciatica M54.32 ; Cigarette smoker F17.210 ; Onychomycosis B35.1 ; Onycholysis L60.1 ; Non morbid obesity E66.9 ; Prostate cancer screening Z12.5 and BMI 32.0-32.9,adult Z68.32 [facility] [address] [place], [place] [id number] 11/04/2024 Tex [place]woods Intermittent claudic ation I73.9 and Abnormal ankle brachial index (DIMITRI) R68.89 [facility] [address] [place], [place] [id number] 07/26/2024 Tex [place] [facility] [address] [place], [place] [id number] 07/30/2024 Tex [place] Intermittent claudic ation I73.9 and Abnormal ankle brachial index (DIMITRI) R68.89 [facility] [address] [place], [place] [id number] 11/11/2024 Tex [place] [facility] [address] [place], [place] [id number] 11/13/2024 Tex [place] Intermittent claudic ation I73.9 and Abnormal ankle brachial index (DIMITRI) R68.89 [facility] [address] [place], [place] [id number] 11/19/2024 Tex [place] Assessments Encounter Date Diagnosis (ICD Code) Assessment Notes Treatment Notes Treatment Clinical Notes Section Notes 07/25/2024 Essential hypertension (ICD-10 - I10) 07/25/2024 CAD in lovelock artery (ICD-10 - I25.10) 07/30/2024 Intermittent claudication (ICD-10 - I73.9) 07/30/2024 Abnormal ankle brachial index (DIMITRI) (ICD-10 - R68.89) 11/04/2024 Intermittent claudication (ICD-10 - I73.9) 11/04/2024 Abnormal ankle brachial index (DIMITRI) (ICD-10 - R68.89) 11/13/2024 Intermittent claudication (ICD-10 - I73.9) 11/13/2024 Abnormal ankle brachial index (DIMITRI) (ICD-10 - R68.89) 07/25/2024 Hyperlipidemia, unspecified hyperlipidemia type (ICD-10 - [...] 32.0-32.9,adult (ICD-10 - Z68.32) Plan Of Treatment Pending Test Test Name Order Date H-BUN/CREAT 11/13/2024 CTA : Abdomen/Pelvis with leg runoff Insurance Providers Payer Name Payer Address Payer Phone Subscriber Number Group Number Insured Name Patient Relationship to Insured Coverage Start Date Coverage End Date [employer] [address] [place] [address] [phone] [id number] Hector Garcias Self - patient is the insured MEDICARE PART B [address] [address] [place] [id number] Hector Garcias Self - patient is the insured Medical (General) History Medical History History ICD Code Hypertlipidemia Esophageal reflux Hypertension Coronary Artery Disease 50 pack year smoking history as of 2024 Surgical History Surgery Date(Month/Year) Percutaneous coronary intervention, 5 st ents in total, at [facility]
--- OUTSIDE RECORDS SUMMARY | 2024-11-21 08:15 | XMS_ITS | Clinical Summary ---
Author Organization [facility] Address [address] [place] [address] Phone Care Team Providers Care Inspector Metal Fabricating Name Role Phone Unavailable Primary Care Provider Unavailabl e Social History Tobacco Use Types Packs/Day Years Used Date Smoking Tobacco: Never Assessed Sex and Gender Information Value Date Recorded Sex Assigned at Not on file Legal Sex Male 10:32 AM EDT Gender Identity Not on file Sexual Orientation Not on file Plan of Treatment Health Maintenance Due Date Last Done Comments Annual Wellness Exam 1961 Hepatitis C Screening 1976 DTaP/TDaP/Td (1 - Tdap) 1977 Cologuard 08/19/2003 Colon Cancer Screening 08/19/2003 Colonoscopy 08/19/2003 FIT 08/19/2003 Sigmoidoscopy 08/19/2003 Virtual Colonography 08/19/2003 Pneumococcal Vaccine 50+ (1 of 1 - PCV) 2008 Zoster (1 of 2) 2008 COVID-19 Vaccine ( - 2023-2 5 season) 2023 Influenza Vaccine (#1) 2024 Hepatitis B Vaccine Aged Out No longe r eligible based on patient's age to complete this topic Meningococcal B Vaccine Aged Out No l onger eligible based on patient's age to complete this topic Insurance [employer] PPO
--- OUTSIDE RECORDS SUMMARY | 2024-11-21 08:15 | XMS_ITS | Clinical Summary ---
Author Organization [facility] Address [address] [place] [address] Care Team Providers Care Director Alumni Relations Name Role Phone Soto Sanchez MD Primary Care Provider Un available Social History Tobacco Use Types Packs/Day Years Used Date Smoking Tobacco: Never Assessed Abuse Screen Answer Date Recorded Unsafe at Home or Work/School Not on file Feels Threatened by Someone? Not on file 11/2022 Does Anyone Keep You from Co ntacting Others or Doint Things Outside the Home? Not on file 12/26/2022 Physical Sign of Abuse Present Not on file 1 Housing Stability Answer Date Recorded Current Living Arrangements Not on file 11/2022 Potentially Unsafe Housing Conditions Not on roxana e 12/26/2022 Family and Community Support Answer Corby e Recorded Help with Day-to-Day Activities Not on file 12/26/2022 Lonely or Isolated Not on file 12/26/2022 Employment Answer Date Recorded Do you want help finding or keeping work or a chavez b? Not on file 12/26/2022 Disabilities Answer Date Recorded Concentrating, Remembering, or Making Decisions Difficulty Not on file 12/26/2022 Doing Errands Independently Difficulty Not on fi le 12/26/2022 Education Answer Date Recorded Help with school or training? Not on file Preferred Language Not on file 12/26/2022 Sex and Gender Information Value Date Recorded Sex Assigned at Not on file Legal Sex Male 11:42 AM EDT Gender Identity Not on file Sexual Orientation Not on file Plan of Treatment Health Maintenance Due Date Last Done Comments ANNUAL PHYSICAL 1960 HEPATITIS C SCREENING 1960 TDAP/TD VACCINES (1 - Tdap) 1977 COLOGUARD 08/19/2003 COLON CANCER SCREENING 5 YEAR SIGMOIDOSCOPY 08/19/2003 COLONOSCOPY 08/19/2003 COLORECTAL CANCER SCREENING 08/19/2003 CT COLONOGRAPHY 08/19/2003 FECAL OCCULT BLOOD TEST 08/19/2003 FIT Testing (1 year) 08/19/2003 Pneumococcal Vaccine 50+ (1 of 1 - PCV) 2008 ZOSTER VACCINE (1 of 2) 2008 AAA SCREEN ONCE 08/19/2023 COVID-19 Vaccine ( season) 2024 INFLUENZA VACCINE 12/18/2024 Care Teams Director Alumni Relations Relationship Specialty Start Date End Date Soto Sanchez MD PCP - General 02/19/15
--- OUTSIDE RECORDS SUMMARY | 2024-11-21 08:15 | XMS_ITS | Patient Health Record ---
Author Organization [facility] Address [address] [place] [address] [address] [place] [address] Support Name Relationship Address Phone Dieter Hector Emergency Contact Unknown Hector Garcias Guarantor Unknown [phone] Allergies No Known Allergies Reason For Referral No Information Medications Medication SIG (Take, Route, Frequency, Duration) Notes Start Date End Date Status Acetaminophen-Hydrocodone Bitartrate 325 mg-10 mg 1 tab(s) orally three times a day; Duration: 28 days Active Acetaminophen-Hydrocodone Bitartrate 325 mg-10 mg 1 tab(s) orally three times a day; Duration: 28 days Active Problems Problem Type SNOMED Code ICD Code Onset Dates Problem Status W/U Status Risk Notes Problem Lumbosacral spondylosis without myelopathy (17298341) Spondylosis without myelopathy or radiculopathy, lumbar region (M47.816) Active confirmed Problem Long-term current use of drug therapy (247460121) Other terminal gauger (current) drug therapy (Z79.899) Active confirmed Plan Of Treatment Pending Test Test Name Order Date Urine Test ANALYZER 07/08/2019 Insurance Providers Payer Name Payer Address Payer Phone Subscriber Number Group Number Insured Name Patient Relationship to Insured Coverage Start Date Coverage End Date [employer] [address] [place] [address] [id number] Nova Garcias Spouse - patient is the spouse of the insured 6 Medical (General) History Medical History History ICD Code HTN 1999- Dr. Squires arthritis 1999- Dr. Squires heart attack 1999- Dr. Squires Surgical History Surgery Date(Month/Year) cardiac catherization- [facility]/ 2-3 day stay [facility] Hospitalization History Reason Date(Month/Year) heart attack [facility] with a 3 d ay stay 2000 Heart attack [facility] with a 3 d ay stay 2015
[2024-11-21 09:50] LABS: Blood Urea Nitrogen 15 mg/dl (9-20); Creatinine,Serum 1.10 mg/dl (0.66-1.25); Estimated Glomerular Filt Rate 67 ml/min (>60); GFR (African American) 81 ML/MIN (>60)
== END 2024-11-21 23:59 | disposition home or self-care (01) ==
LOC: LAB 08:09
PROVIDERS: PCP Family Medicine; Visit Provider Family Medicine
DX: I73.9 Peripheral vascular disease, unspecified (principal); R68.89 Other general symptoms and signs
CPT/HCPCS: 36415; 82565; 84520